=== PATIENT | male | born 1990 | race Hispanic/Latino ===

== ENCOUNTER 2023-01-03 21:54 | Emergency (ER) | payer OTHER ==
[~2023-01-03] VITALS: Ht 170.2 cm; Wt 78.2 kg
[2023-01-03] MEDS ORDERED: PERCOCET 5MG/325MG TAB PO ONE (22:45)
[2023-01-03] MEDS ORDERED: NORCO 5/325MG TABLET (HOME DOSE PACK) PO ONE (23:10)
[2023-01-03 23:24] VITALS: BP 124/59
== END 2023-01-03 23:41 | disposition home or self-care (01) ==
LOC: M ED 21:54
DX: S42.021A Displaced fracture of shaft of right clavicle, initial encounter for closed fracture (principal); F10.10 Alcohol abuse, uncomplicated; Y92.830 Public park as the place of occurrence of the external cause; Y93.66 Activity, soccer